=== PATIENT | female | born 1970 | race Caucasian/White ===

== ENCOUNTER 2016-09-08 22:06 | Emergency (ER) | payer OTHER ==
[~2016-09-08] VITALS: Ht 170.2 cm; Wt 85.2 kg
[~2016-09-08 22:06] MED LIST: LSN5 PO
[2016-09-08 22:09] VITALS: TEMP 36.9; Ht 170.2 cm; Wt 85.2 kg
[2016-09-08] MEDS ORDERED: ALBUTEROL HFA 8 GM INHALER INH STA (22:25)
[2016-09-08] MEDS ORDERED: ALBUT/IPRATROP 3MG/0.5MG NEB 3 ML VIAL INH STA (22:25)
[2016-09-08] MEDS ORDERED: PSEUDOEPHEDRINE HCL 30 MG TAB PO STA (22:26)
[2016-09-08] MEDS ORDERED: DEXAMETHASONE SOD INJ 10 MG/ML VIAL PO ONE (22:30)
[2016-09-08] MEDS ORDERED: PHEN1MIS PO (22:35)
[2016-09-08] MEDS ORDERED: LSN5 PO (22:35)
[2016-09-08] MEDS ORDERED: PRED50TA PO (23:47)
[2016-09-09 00:01] VITALS: BP 178/91; PULSE 87; O2SAT 98
--- NOTE | 2016-09-09 04:59 | EMERGENCY ROOM VISIT NOTE ---
History First contact with patient: 22:17 Chief Complaint: ILLNESS Stated Complaint: COUGH, SORE THROAT, RUNNY NOSE, VOMITING History of Present Illness The patient is a 46 year old female who presents to the Emergency Room with complaints of cough, congestion, runny nose for the past few days. Patient had bronchitis before and symptoms of similar. Patient denies chest pain, neck stiffness, headache, earache, abdominal pain, vomiting, diarrhea. No recent antibiotics. Review of Systems See HPI for pertinent positives & negatives. A total of 10 systems reviewed and were otherwise negative. Past Medical/Surgical History Medical Problems: (1) Bilateral tubal ligation (2) Carcinoma of cervix (3) Chest pain (4) Migraine (5) Tonsillectomy Family History Diabetes mellitus Hypertension Social History Smoking Status: Never Smoker Alcohol Use: none Drug Use: none Marital Status: other Housing Status: lives with family Occupation Status: employed Current/Historical Medications Scheduled Lisinopril (Lisinopril), 5 MG PO QAM Prednisone (Prednisone), 50 MG PO DAILY Scheduled PRN Fstzcpymcolee-Ymiiyyeuen-Gbzmn (Vicks Dayquil/Nyquil Cold), 1 TAB PO DIRECTED PRN for COLD SYMPTOMS Allergies Coded Allergies: Codeine (Verified Allergy, Unknown, hives, 09/08/16) Doxycycline (Verified Adverse Reaction, Unknown, NAUSEA AND VOMITING, 09/08) Physical Exam Vital Signs Date Time Temp Pulse Resp B/P (MAP) Pulse Ox O2 Delivery O2 Flow Rate FiO2 09/09/16 00:01 87 18 178/91 98 09/08/16 22:09 36.9 92 18 99 Room Air Pain Rating (0-10): 0 Physical Exam VITALS: Vitals are noted on the nurse's note and reviewed by myself. Vital signs stable. GENERAL: Pleasant female, in no acute distress, nondiaphoretic, well-developed well-nourished. SKIN: The skin was without rashes, erythema, edema, or bruising. There is no tenting of the skin. Capillary reflex less than 2 seconds. HEAD: Normocephalic atraumatic. EARS: External auditory canals clear, tympanic membranes pearly miller without erythema or effusion bilaterally. EYES: Pupils equal round and reactive to light and accommodation. Conjunctivae without injection, sclerae without icterus. Extraocular movements intact. NOSE: Patent, turbinates without inflammation or discharge. No sinus tenderness. MOUTH: Mucous membranes moist. Pharynx without erythema or exudate. Uvula midline. Airway patent. Tongue does not deviate. NECK: Supple without nuchal rigidity. No lymphadenopathy. No thyromegaly. Cervical spine is nontender. No JVD. No meningeal signs HEART: Regular rate and rhythm without murmurs gallops or rubs. LUNGS: Mild diffuse end expiratory wheezes, without rales or rhonchi. No dullness to percussion. No retractions or accessory muscle use. ABDOMEN: Positive bowel sounds x 4. Normal tympanic percussion. Soft, nontender, without masses or organomegaly. Rae sign negative. No guarding or rebound tenderness. MUSCULOSKELETAL: No muscle atrophy, erythema, or edema noted. NEURO: Patient was alert and oriented to person place and time. Normal sensation to light and sharp touch. No focal neurological deficits. Medical Decision & Procedures Medications Administered Medications (Trade) Dose Ordered Sig/Pilo Route Start Time Stop Time Status Last Admin Dose Admin Albuterol/ Ipratropium (Duoneb) 3 ml NOW STAT INH 09/08/16 22:25 09/08/16 22:27 DC 09/08/16 22:57 3 ML Dexamethasone Sodium Phosphate (Decadron Inj) 10 mg NOW ONCE PO 09/08/16 22:30 09/08/16 22:31 DC 09/08/16 22:57 10 MG Pseudoephedrine HCl (Sudafed Tab) 60 mg NOW STAT PO 09/08/16 22:26 09/08/16 22:28 DC 09/08/16 22:57 60 MG ED Course Prior records/ancillary studies reviewed. Triage Nursing notes reviewed. The patient's history was concerning for respiratory difficulties. Differential diagnosis: Etiologies such as infections, reactive airway disease, pneumonia, pneumothorax , COPD, CHF, cardiac ischemia, pulmonary embolism, musculoskeletal, gastrointestinal, as well as others were entertained. Physical examination: As above. ER treatment provided: Nebulizer, steroids On reassessment the patient felt better. Diagnostic interpretation by me: Imaging studies: Chest x-ray with no acute consolidation, pneumothorax or free air per my interpretation. This appears to be consistent with arthritis most likely viral in etiology. No pneumonia. She felt much better after being medicated as above. She is advised take medications as directed and follow-up family care in a few days or here in the ER sooner for high fevers, difficulty breathing, worsening signs or symptoms or as needed. By the evaluation outlined above emergent etiologies such as CHF, cardiac ischemia, pulmonary embolism, reactive airway disease, pneumonia, pneumothorax, musculoskeletal, serious bacterial infections, as well as others were deemed relatively unlikely. The pt informed about the findings as listed above. All questions were answered and pleased with the treatment. Return instructions were outlined and the patient was discharged in stable condition. Outpatient prescription management: Prednisone Referral: The patient was referred back to their primary care physician for follow-up in 2 to 3 days for a recheck of the current condition. Medical Decision As above Impression Primary Impression: Acute bronchitis Departure Information Dispostion Home / Self-Care Condition GOOD Prescriptions Prednisone (Prednisone) 50 Mg Tab 50 MG PO DAILY for 4 Days, #4 TAB Prov: Liz Martinez .BEBETO 09/08/16 Forms WORK / SCHOOL INSTRUCTIONS, HOME CARE DOCUMENTATION FORM, Days off work : 2 Work Instructions, IMPORTANT VISIT INFORMATION Patient Instructions Bronchitis Acute, [facility] Additional Instructions Albuterol Inhaler: Take 2 puffs four times daily for five days, then as needed. Prednisone 50mg: Once daily until the prescription is finished. It is best to take this earlier in the day as some patients note occasional difficulty falling asleep when taken in the late evening. Rest and drink plenty of fluids. Avoid smoke/smoking, fumes, dust, or any triggers in the past that may have affected your breathing. Acetaminophen(Tylenol) may be used for fever or pain. Use 1000mg every six hours as needed. Avoid using more than 3000mg in a 24 hour period. (AND/OR) Ibuprofen(Motrin, Advil) may be used for fever or pain. Use 600mg every six hours as needed. Take with food. Avoid using more than 2400mg in a 24 hour period. Do not use 2400mg per day for more than three consecutive days without physician direction. Prolonged inappropriate use can lead to stomach upset or ulcers. Afrin nasal spray: 2-3 sprays to each nostril twice daily as needed for congestion. Do not use for more than 3-4 days because it can lead to worsening rebound congestion. Pseudoephedrine(Sudaphed): 30-60mg every 6 hours as needed for nasal congestion. Do not take this with other stimulant products or supplements. Rest and drink plenty of fluids. Controlling your fever with Tylenol and Ibuprofen as above will make you feel better. Wash your hands after nose blowing, sneezing, or coughing. Most germs are spread through contact, therefore improper hygiene may result in your close contacts and loved ones becoming ill just like you. Continue current medications. Return to the ER for severe headache, neck stiffness, chest pain, difficulty breathing, fevers, vomiting, worsening of your condition, or as needed. Follow up with your primary physician this week for a recheck of your current condition. Problem Qualifiers Primary Impression: Acute bronchitis Bronchitis organism: unspecified organism Qualified Codes: J20.9 - Acute bronchitis, unspecified
--- NOTE | 2016-09-09 07:07 | DIAGNOSTIC IMAGING REPORT ---
CHEST 2 VIEWS ROUTINE CLINICAL HISTORY: cough COMPARISON STUDY: 05/01/2015 FINDINGS: The cardiac and mediastinal contours are normal. There is no evidence of focal pulmonary consolidation. There is no evidence of failure. No pleural effusions are visualized.[ IMPRESSION: No active disease in the chest. Electronically signed by: Willie Aguero M.D. 09/09/2016 7:05 AM Dictated Date/Time: 09/09/2016 7:05 AM
== END 2016-09-09 | disposition home or self-care (01) ==
LOC: C.EDB 22:08 → C.EDC 09-09
DX: J20.9 Acute bronchitis, unspecified (principal); Z98.51 Tubal ligation status; Z85.41 Personal history of malignant neoplasm of cervix uteri; Z83.3 Family history of diabetes mellitus; Z82.49 Family history of ischemic heart disease and other diseases of the circulatory system; Z79.899 Other long term (current) drug therapy

== ENCOUNTER 2016-10-31 10:43 | Emergency (ER) | payer OTHER ==
[~2016-10-31] VITALS: Ht 170.2 cm; Wt 85.5 kg
[~2016-10-31 10:43] MED LIST changes: +PHEN1MIS PO
[2016-10-31 10:46] VITALS: BP 165/82; PULSE 68; TEMP 36.5; O2SAT 99; Ht 170.2 cm; Wt 85.5 kg
[2016-10-31] MEDS ORDERED: HYDROCODONE/ACETAMOPHEN 5/325MG TAB PO STA (10:59)
--- NOTE | 2016-10-31 11:15 | DIAGNOSTIC IMAGING REPORT ---
RIGHT SHOULDER MIN 2 VIEWS ROUTINE CLINICAL HISTORY: right shoulder pain Right pain COMPARISON: None. DISCUSSION: The bones and joint spaces appear intact. There is no evidence of fracture, dislocation or bony disease. There is no evidence for soft tissue swelling. IMPRESSION: Negative study. The above report was generated using voice recognition software. It may contain grammatical, syntax or spelling errors. Electronically signed by: Henry Membreno M.D. 10/31/2016 11:14 AM Dictated Date/Time: 10/31/2016 11:14 AM
--- NOTE | 2016-10-31 11:25 | EMERGENCY ROOM VISIT NOTE ---
ED Visit Note First contact with patient: 10:55 CHIEF COMPLAINT: Right Shoulder injury HISTORY OF PRESENT ILLNESS: This 46-year-old female presents the ER with chief complaint of right shoulder pain. 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 She thought it was just a strain and that it would get better but now it has been 2 weeks and it is not any better but is actually getting worse. The patient states she is now getting some numbness and tingling down her arm. The patient states she has limited range of motion. She has been taking Aleve which is not controlling the pain. The pain is keeping her up at night. The patient is right-hand dominant. The patient has seen [facility] in the past for other orthopedic needs. REVIEW OF SYSTEMS: 6 system review was performed and was negative unless stated otherwise in history of present illness. PMH: The patient is healthy; hypertension, left knee surgery SOCIAL HISTORY: Patient lives with a friend. The patient denies any tobacco or alcohol use. PHYSICAL EXAM: Vital Signs: Were reviewed Reviewed nurse's notes. GENERAL: 46- year-old white female appears in no acute distress. MENTAL Status: Alert and oriented 3. RIGHT SHOULDER: The shoulder is not swollen or deformed on inspection. The range of motion is limited in abduction, flexion and extension secondary to pain. There is no tenderness of the distal clavicle. No eccymosis seen. The patient has tenderness palpation over the superior aspect of the shoulder as well as over the lateral aspect of the humeral head. Interior Designer strength is 5 out of 5 as compared to the left. Sensation is intact right upper extremity. EMERGENCY DEPARTMENT COURSE: The patient was evaluated. The patient was given Hayes 5/325 mg 2 tablets by mouth for pain. X-ray of the right shoulder was ordered and interpreted by the radiologist and myself. DIAGNOSTICS:RIGHT SHOULDER MIN 2 VIEWS ROUTINE CLINICAL HISTORY: right shoulder pain Right pain COMPARISON: None. DISCUSSION: The bones and joint spaces appear intact. There is no evidence of fracture, dislocation or bony disease. There is no evidence for soft tissue swelling. IMPRESSION: Negative study. The above report was generated using voice recognition software. It may contain grammatical, syntax or spelling errors. The patient was informed of the findings. The patient was placed in a right arm sling and discharged home in stable condition. DIAGNOSIS: Right shoulder sprain DISCHARGE INSTRUCTIONS & TREATMENT: Continue taking Aleve as directed on the label. Take Hayes as needed for more severe pain. Do not drive while taking the Hayes. Keep arm in sling except for bathing until evaluated by orthopedics. Call [facility] for follow-up appointment for further evaluation and treatment. Problem List Medical Problems: (1) Bilateral tubal ligation Status: Resolved (2) Carcinoma of cervix Status: Chronic (3) Migraine Status: Resolved (4) Tonsillectomy Status: Resolved Current/Historical Medications Scheduled Lisinopril (Lisinopril), 5 MG PO QAM Allergies Coded Allergies: Codeine (Verified Allergy, Unknown, hives, 09/08/16) Doxycycline (Verified Adverse Reaction, Unknown, NAUSEA AND VOMITING, 09/08) Vital Signs Date Time Temp Pulse Resp B/P (MAP) Pulse Ox O2 Delivery O2 Flow Rate FiO2 10/31/16 10:46 36.5 68 18 165/82 99 Room Air Medications Administered Medications (Trade) Dose Ordered Sig/Pilo Route Start Time Stop Time Status Last Admin Dose Admin Acetaminophen/ Hydrocodone Bitart (Hayes 5/325 Tab) 2 tab NOW STAT PO 10/31/16 10:59 10/31/16 11:00 DC 10/31/16 11:04 2 TAB Departure Information Referrals No Doctor, Assigned (PCP) Patient Instructions [facility]
[2016-10-31] MEDS ORDERED: HYDR-5688 PO (11:33)
== END 2016-10-31 11:45 | disposition home or self-care (01) ==
LOC: C.EDB 10:45 → C.EDD 11:45
DX: S43.401A Unspecified sprain of right shoulder joint, initial encounter (principal); R20.0 Anesthesia of skin; R20.2 Paresthesia of skin; I10 Essential (primary) hypertension; Z79.899 Other long term (current) drug therapy; X50.0XXA Overexertion from strenuous movement or load, initial encounter; Y93.F9 Activity, other caregiving

== ENCOUNTER 2017-02-19 11:24 | Emergency (ER) | payer OTHER ==
[~2017-02-19] VITALS: Ht 170.2 cm; Wt 88.4 kg
[~2017-02-19 11:24] MED LIST changes: +HYDR-5688 PO; -PHEN1MIS PO
[2017-02-19 11:29] VITALS: TEMP 36.7; Ht 170.2 cm; Wt 88.4 kg
[2017-02-19] MEDS ORDERED: NAPR1TAB9 PO (12:01)
[2017-02-19] MEDS ORDERED: FLUT50SP22 NAE (12:01)
[2017-02-19] MEDS ORDERED: SODIUM CHLORIDE 0.9% 1000ML 1,000 ML IV STA (12:17)
[2017-02-19] MEDS ORDERED: ALBUT/IPRATROP 3MG/0.5MG NEB 3 ML VIAL INH STA (12:17)
[2017-02-19] MEDS ORDERED: BENZONATATE 100MG CAP PO ONE ×3 (12:30→14:45)
--- NOTE | 2017-02-19 13:13 | DIAGNOSTIC IMAGING REPORT ---
SINGLE VIEW CHEST CLINICAL HISTORY: Atypical chest pain. FINDINGS: An AP, portable, upright chest radiograph is compared to study dated 09/08/2016. The examination is mildly degraded by portable technique and patient rotation. The cardiomediastinal silhouette is unremarkable. The lungs and pleural spaces are clear. No pneumothorax is seen. The bony thorax is grossly intact. IMPRESSION: No active disease in the chest. Electronically signed by: Sarath Fernandez M.D. 02/19/2017 1:12 PM Dictated Date/Time: 02/19/2017 1:11 PM
[2017-02-19 13:17] LABS: BASO % 0.9 %; BASO ABS # 0.06 K/uL (0-0.2); COMPLETE YES; EOS % 1.7 %; HEMATOCRIT 37.9 % (37-47); IG% 0.3 %; LYMPH % 31.8 %; LYMPH ABS # 2.04 K/uL (1.2-3.4); MEAN CELL VOLUME 87.9 fL (80-100); MEAN CORPUSCULAR HEMOGLOBIN 30.2 pg (25-34); MEAN CORPUSCULAR HGB CONC 34.3 g/dl (32-36); MEAN PLATELET VOLUME 12.2 fL (7.4-10.4); MONO % 8.1 %; NEUT % 57.2 %; PLATELET COUNT 190 K/uL (130-400); RED BLOOD COUNT 4.31 M/uL (4.2-5.4); WHITE BLOOD COUNT 6.42 K/uL (4.8-10.8)
[2017-02-19 13:35] LABS: POINT OF CARE TROPONIN I < 0.030 ng/ml (0-0.045)
[2017-02-19 13:40] LABS: ALT/SGPT 23 U/L (12-78); AST/SGOT 21 U/L (15-37); BLOOD UREA NITROGEN 14 mg/dl (7-18); BUN/CREATININE RATIO 14.9 (10-20); CALCIUM 8.7 mg/dl (8.5-10.1); CARBON DIOXIDE 29 mmol/L (21-32); CHLORIDE 106 mmol/L (98-107); CREATININE 0.93 mg/dl (0.60-1.20); GLUCOSE 89 mg/dl (70-99); SODIUM 137 mmol/L (136-145)
[2017-02-19 13:43] LABS: ALKALINE PHOSPHATASE 153 U/L (45-117)
[2017-02-19] MEDS ORDERED: VNTHFA/IN INH (14:16)
[2017-02-19] MEDS ORDERED: BENZ100C18 PO (14:16)
[2017-02-19] MEDS ORDERED: PRED20TA2 PO (14:16)
[2017-02-19] MEDS ORDERED: EMPTY 8 DRAM VIAL ONE (14:39)
[2017-02-19] MEDS ORDERED: ALBUTEROL HFA 8 GM INHALER INH ONE ×2 (14:39→14:45)
[2017-02-19 14:50] VITALS: BP 139/95; PULSE 81; O2SAT 97
--- NOTE | 2017-02-19 18:08 | EMERGENCY ROOM VISIT NOTE ---
ED Visit Note First contact with patient: 11:44 Chief Complaint: Cough and runny nose. History of Present Illness: Ms. Donahue is a 46-year-old white female who ambulates into the ED accompanied by mother and a male friend with complaints of cough and runny nose. Patient reports approximately one week ago she started developing sinus congestion, nasal drain, cough and sore throat. She felt for a couple days it was getting better but then worsened. Now her cough is productive of a greenish sputum with intermittent hemoptysis, she has a greenish discharge from her nose and an occasional nosebleed, she is experiencing sinus pressure and after severe episode of coughing she has vomiting. She has not identified any aggravating or alleviating factors related to these symptoms. She has not taken any medications for her symptoms prior to arrival at the hospital. Associated with her symptoms she does report she is having left-sided chest pain over the left ear pain, lateral chest wall, intermittent palpitations and cramping of her right calf at night. She denies fevers, chills, sweats, skin eruptions, skin color changes, visual changes, hearing changes, voice changes, inability to swallow, drooling, painful talking, neck pain/stiffness, dizziness, lightheadedness, previous clots , claudication, recent surgery/inactivity/extended travel, tobacco and estrogen use, abdominal pain, decreased appetite, vomiting, diarrhea, constipation. Review of Systems: As noted above in history of present illness. All body systems were reviewed and found to be negative as noted above. Past Medical History: Unspecified heart disease, hypertension, bronchitis, pneumonia, migraine headaches, kidney stones, tubal ligation, hysterectomy, cervical cancer. Current Medications: Lisinopril, Flonase, Aleve. Allergies to Medications: Codeine, doxycycline. Social History: Patient is currently employed; she feels safe in her home environment; she denies tobacco and alcohol use. Physical Examination: Vital Signs: Date Time Temp Pulse Resp B/P (MAP) Pulse Ox O2 Delivery O2 Flow Rate FiO2 02/19/17 14:50 81 22 139/95 97 02/19/17 14:23 77 20 143/82 97 Room Air 02/19/17 13:30 75 18 129/88 98 Room Air 02/19/17 12:14 82 02/19/17 11:56 74 16 133/83 98 Room Air 02/19/17 11:32 99 Room Air 02/19/17 11:29 36.7 79 16 137/85 99 Room Air GENERAL: 46-year-old female in mild distress due to symptoms, nontoxic-appearing , afebrile and hemodynamically stable. NEUROLOGICAL: Awake, alert and oriented to person, place and time. Answering questions appropriately and following commands. Normal gait. Good hand eye coordination. No focal motor sensory deficits. SKIN: Warm, dry and pink. No soft tissue eruptions or trauma noted. HEENT: Atraumatic and normocephalic. Mild erythema but no tenderness over the frontal or maxillary sinuses. External ears are nontender. Auditory canals are pink and patent. Tympanic membranes are not erythematous or bulging. PERRLA. Sclera white and conjunctiva pink without drainage. No drainage from naris, but audible congestion. Oral cavity moist and pink. Pharynx is nonerythematous or edematous. Speech normal. No lymphadenopathy. Trachea midline. No jugular venous distention. BACK: No tenderness over the bony spine. No nuchal rigidity or meningismus. No CVA tenderness. THORAX: Lungs sounds are clear to auscultation and equal bilaterally with symmetrical chest wall. Decreased air movement in all light. No wheezing, rales or rhonchi. Mild to moderate tenderness over the anterior lower and lateral chest domínguez without bony deformity, bony crepitus, swelling, ecchymosis or subcutaneous air. HEART: Regular rate and rhythm. No gallops, rubs or murmurs are appreciated. PMI is not displaced. No lifts, heaves or thrills. ABDOMEN: Flat, soft and nontender. Positive bowel sounds in all quadrants. No guarding, rigidity or organomegaly. EXTREMITIES: Moves all extremities well on command and with purpose. All distal neurovascular statuses are intact and equal bilaterally. No calf tenderness or cords. ED Course: Patient is assessed as noted above. Patient's medication list was reviewed. Laboratory Testing: Test 02/19/17 13:00 02/19/17 13:16 Range/Units White Blood Count 6.42 4.8-10.8 K/uL Red Blood Count 4.31 4.2-5.4 M/uL Hemoglobin 13.0 12.0-16.0 g/dL Hematocrit 37.9 37-47 % Mean Corpuscular Volume 87.9 80-100 fL Mean Corpuscular Hemoglobin 30.2 25-34 pg Mean Corpuscular Hemoglobin Concent 34.3 32-36 g/dl Platelet Count 190 130-400 K/uL Mean Platelet Volume 12.2 7.4-10.4 fL Neutrophils (%) (Auto) 57.2 % Lymphocytes (%) (Auto) 31.8 % Monocytes (%) (Auto) 8.1 % Eosinophils (%) (Auto) 1.7 % Basophils (%) (Auto) 0.9 % Neutrophils # (Auto) 3.67 1.4-6.5 K/uL Lymphocytes # (Auto) 2.04 1.2-3.4 K/uL Monocytes # (Auto) 0.52 0.11-0.59 K/uL Eosinophils # (Auto) 0.11 0-0.5 K/uL Basophils # (Auto) 0.06 0-0.2 K/uL RDW Standard Deviation 41.3 36.4-46.3 fL RDW Coefficient of Variation 12.8 11.5-14.5 % Immature Granulocyte % (Auto) 0.3 % Immature Granulocyte # (Auto) 0.02 0.00-0.02 K/uL Sodium Level 137 136-145 mmol/L Potassium Level 4.0 3.5-5.1 mmol/L Chloride Level 106 98-107 mmol/L Carbon Dioxide Level 29 21-32 mmol/L Anion Gap 2.0 3-11 mmol/L Blood Urea Nitrogen 14 7-18 mg/dl Creatinine 0.93 0.60-1.20 mg/dl Est Creatinine Clear Calc Drug Dose 85.4 ml/min Estimated GFR () 84.8 Estimated GFR (Non- 73.2 BUN/Creatinine Ratio 14.9 10-20 Random Glucose 89 70-99 mg/dl Calcium Level 8.7 8.5-10.1 mg/dl Total Bilirubin 0.4 0.2-1 mg/dl Direct Bilirubin < 0.1 0-0.2 mg/dl Aspartate Amino Transf (AST/SGOT) 21 15-37 U/L Alanine Aminotransferase (ALT/SGPT) 23 12-78 U/L Alkaline Phosphatase 153 45-117 U/L Total Creatine Kinase 170 26-192 U/L Total Protein 7.3 6.4-8.2 gm/dl Albumin 3.6 3.4-5.0 gm/dl Lipase 92 73-393 U/L Bedside D-Dimer 249 0-450 ng/mlFEU Bedside Troponin I < 0.030 0-0.045 ng/ml Chest X-Rays: Were read by myself and the radiologist showing no acute infiltrates, effusions or pneumothorax. Normal heart silhouette and bony anatomy. EKG: Was read by myself and reviewed with Dr. Collins; shows normal sinus rhythm with a ventricular rate of 71 bpm. Normal axis, intervals and complexes. No acute ST changes indicating indicating ischemia, injury or infarction. Patient was hydrated with normal saline, she received an albuterol/Atrovent nebulizer breathing treatment, 200 mg of Tessalon Perles by mouth for cough, 60 mg of prednisone by mouth. Patient was reassessed multiple times during her stay in the emergency department. Her first reassessment after her breathing treatment showed improvement air movement in all light and no rales, wheezing or rhonchi. Subjectively patient reports she felt slightly better. Patient's case was reviewed with Dr. Collins; we agreed on diagnostic approach, treatment, disposition and plan. Patient was educated about today's findings and instructed on her treatment plan ; she verbalizes understanding and agreement with this plan. Clinical Impression: Acute bronchitis. Decision-Making: Initially my differential diagnosis I considered pulmonary embolism, pneumonia, pneumothorax, acute coronary syndrome, pericarditis, bronchitis and other causes. Patient's blood pressure: Normal. Blood pressure disposition: None required. Disposition: Patient discharged home in stable condition accompanied by her mother and a male friend; prior to departure she was reassessed and subjectively reported was feeling much better but continued to rate her discomfort 8/10. Plan: Patient is encouraged to continue current medications as prescribed. Patient was prescribed an albuterol at work and encouraged to use 2 puffs every 6 hours with spacer for 5 days and as needed for shortness of breath/wheezing or severe coughing episode. Patient was prescribed prednisone 60 mg once a day for the next 4 days. Patient was prescribed Tessalon Perles 100 mg every 8 hours as needed for cough. Patient was encouraged to use an [id number] decongestant for nasal drainage. Patient is encouraged use ibuprofen or acetaminophen as needed for pain. Patient was encouraged follow-up with family physician for recheck in 3-4 days if no better. Patient is encouraged return ED for worsening/uncontrolled pain, shortness of breath, wheezing, fevers, coughing up more blood, worsening chest discomfort or any new/concerning symptoms.
== END 2017-02-19 14:51 | disposition home or self-care (01) ==
LOC: C.EDB 11:25 → C.EDC 14:51
DX: J20.9 Acute bronchitis, unspecified (principal); I10 Essential (primary) hypertension; Z87.442 Personal history of urinary calculi; Z90.710 Acquired absence of both cervix and uterus; Z85.41 Personal history of malignant neoplasm of cervix uteri

== ENCOUNTER 2017-07-04 17:50 | Emergency (ER) | payer OTHER ==
[~2017-07-04] VITALS: Ht 170.2 cm; Wt 92.5 kg
[~2017-07-04 17:50] MED LIST changes: -HYDR-5688 PO; +NAPR1TAB9 PO
[2017-07-04 18:09] VITALS: TEMP 36.8; Ht 170.2 cm; Wt 92.5 kg
[2017-07-04] MEDS ORDERED: KETOROLAC TROMETHAMINE 60 MG/2 ML VIAL IM STA (18:23)
--- NOTE | 2017-07-04 18:45 | EMERGENCY ROOM VISIT NOTE ---
History First contact with patient: 18:16 Chief Complaint: OTHER COMPLAINT Stated Complaint: LUMP UNDER RT BREAST, HURTS REALLY BAD History of Present Illness The patient is a 47 year old female who presents to the Emergency Room with complaints of painful lump just inferior to her right breast. Patient states that the lump has been there for several months but recently it started becoming painful over the last few days. The patient denies any redness or any drainage. The patient states that she had a similar lump in the same area in the past which had to be surgically removed. She states it was approximately 4 years ago and was performed at [facility]. She does not know the surgeon's name. The patient denies any chest pain or any shortness of breath. The patient denies any lumps in her breasts. Review of Systems 10 system review was performed and was negative unless stated otherwise history of present illness. Past Medical/Surgical History Medical Problems: (1) Bilateral tubal ligation (2) Carcinoma of cervix (3) Chest pain (4) Migraine (5) Tonsillectomy Family History Diabetes mellitus Hypertension Social History Smoking Status: Never Smoker Alcohol Use: none Drug Use: none Marital Status: other Housing Status: lives with family Occupation Status: employed Current/Historical Medications Scheduled Lisinopril (Lisinopril), 5 MG PO QAM Scheduled PRN Naproxen (Aleve), 440 MG PO UD PRN for Pain Physical Exam Vital Signs Date Time Temp Pulse Resp B/P (MAP) Pulse Ox O2 Delivery O2 Flow Rate FiO2 07/04/17 18:09 36.8 83 20 149/97 100 Room Air Physical Exam GENERAL: 47-year-old white female appears in no acute distress. MENTAL Status: Alert and oriented 3. LUNGS: Clear auscultation without wheezes rales or rhonchi. CARDIAC: Regular rate and rhythm without murmur. Pulses is full and equal throughout. CHEST WALL: On the right inferior chest wall there is a palpable soft tissue mass which is approximately 2-1/2 cm in length but it is not well-defined. There is no associated erythema or drainage. It is tender to palpation. I can only palpate this lump in the sitting position. I cannot palpate the lump in the supine position. There is an incision just inferior and lateral to the area of concern. The remainder chest wall is unremarkable. Medical Decision & Procedures Medications Administered Medications (Trade) Dose Ordered Sig/Pilo Route Start Time Stop Time Status Last Admin Dose Admin Ketorolac Tromethamine (Toradol Inj) 60 mg NOW STAT IM 07/04/17 18:23 07/04/17 18:24 DC 07/04/17 18:37 60 MG ED Course Patient was evaluated. The patient was given Toradol 60 mg IM for pain. I had the case management social worker tried to obtain the records from [facility] but he was unable to obtain the records through [employer] since there was a change today in their system. The patient was discharged to home in stable condition with instructions to follow-up with her [facility] surgeon for evaluation. Medical Decision Differential diagnosis includes sebaceous cyst, lipoma, abscess I do not feel that this is an abscess and since there is no erythema. I feel this needs to be evaluated by the surgeon. [place] Drug Monitoring Program Search Results: patient reviewed within database Medication Reconcilliation Current Medication List: was personally reviewed by me Blood Pressure Screening Patient's blood pressure: Elevated blood pressure Blood pressure disposition: Elevated BP felt to be situational Impression Primary Impression: Soft tissue lump right chest wall Departure Information Dispostion Home / Self-Care Condition GOOD Referrals Maddi Schaefer M.D. (PCP) Forms HOME CARE DOCUMENTATION FORM, IMPORTANT VISIT INFORMATION, WORK / SCHOOL INSTRUCTIONS Patient Instructions My [employer] Additional Instructions Ibuprofen 600 mg every 6 hours with food for pain. Call [facility] surgery for follow-up appointment for definitive evaluation and treatment.
[2017-07-04 19:02] VITALS: BP 149/83; PULSE 75; O2SAT 100
== END 2017-07-04 19:03 | disposition home or self-care (01) ==
LOC: C.EDB 17:52 → C.EDD 19:03
DX: R22.2 Localized swelling, mass and lump, trunk (principal)